=== PATIENT | female | born 1955 ===

== ENCOUNTER 2024-05-28 13:45 | Outpatient (CLI) | payer OTHER | END 2024-05-28 13:49 | disposition home or self-care (01) | LOC: MAMO-SONO 13:45 | DX: N63.10 Unspecified lump in the right breast, unspecified quadrant (principal); N63.11 Unspecified lump in the right breast, upper outer quadrant; N64.4 Mastodynia; Z12.31 Encounter for screening mammogram for malignant neoplasm of breast ==